=== PATIENT | female | born 1965 | race Caucasian/White ===

== ENCOUNTER 2017-03-05 09:09 | Emergency (ER) | payer SELFPAY ==
[~2017-03-05] VITALS: Ht 162.6 cm; Wt 127.0 kg
[~2017-03-05 09:09] MED LIST: RANITIDINE
[2017-03-05 09:55] VITALS: BP 137/87
== END 2017-03-05 10:01 | disposition home or self-care (01) ==
LOC: ER 09:10
DX: I86.8 Varicose veins of other specified sites (principal); I10 Essential (primary) hypertension; E66.9 Obesity, unspecified
CPT/HCPCS: 99283

== ENCOUNTER 2017-03-28 02:04 | Emergency (ER) | payer SELFPAY ==
[~2017-03-28] VITALS: Ht 160 cm; Wt 60.0 kg
[2017-03-28 04:00] VITALS: BP 162/84
[2017-03-28] MEDS ORDERED: BACITRACIN ZINC OINT UDPKT TOP ONE (04:30)
== END 2017-03-28 05:10 | disposition home or self-care (01) ==
LOC: ER 04:22
DX: I83.891 Varicose veins of right lower extremity with other complications (principal); Z98.890 Other specified postprocedural states
CPT/HCPCS: 99282